=== PATIENT | female | born 1950 | race Caucasian/White ===

== ENCOUNTER 2019-10-12 14:39 | Emergency (ER) | payer MEDICARE, SELFPAY ==
[2019-10-12] VITALS (39 sets, daily range): BP systolic 102–158; BP diastolic 53–79; PULSE 79–120; RESP 9–22; TEMP 36.1–36.3; O2SAT 98–100
[2019-10-12 15:05] LABS: Add Manual Diff / Slide Review NO; Basophils Absolute Auto 100 /uL (0-100); Basophils Percent Auto 0.5 % (0-2); Eosinophils Absolute Auto 100 /uL (0-450); Eosinophils Percent Auto 0.2 % (2-4); Lymphocytes Absolute Auto 3600 /uL (1100-4500); Lymphocytes Percent Auto 15.4 % (25-40); Mean Corpuscular HGB Conc 30.4 % (30-36); Mean Corpuscular Hemoglobin 24.3 PG (26-34); Monocytes Absolute Auto 1400 /uL (0-900); Neutrophils Absolute Auto 18000 /uL (1500-7000); Neutrophils Percent Auto 77.9 % (50-75); Platelet Count 554 X10^3/uL (150-400); Red Blood Cell Count 1.64 X10^6/uL (4.0-5.2); Red Cell Distribution Width 16.9 % (11.6-14.8); White Blood Cell Count 23.2 X10^3/uL (4.5-11.0)
[2019-10-12 15:06] LABS: INR 1.1 (0.9-1.3); Prothrombin Time 12.9 SECONDS (10.1-12.7)
[2019-10-12] MEDS: ONDANSETRON 4 MG/2 ML INJ IV ×2 (15:08→21:55)
[2019-10-12 15:09] LABS: PTT Partial Thromboplastin Tim 24 SECONDS (26.4-36.2)
[2019-10-12] MEDS: MORPHINE 2 MG/ML INJ IV ×2 (15:09→15:33)
[2019-10-12] MEDS: SODIUM CHLORIDE 0.9% 1,000 ML 1000 ML IV (15:09)
[2019-10-12 15:10] LABS: Hematocrit 13.1 % (36-46)
[2019-10-12 15:11] LABS: Alanine Aminotransferase 26 IU/L (<35); Albumin 3.4 g/dL (3.5-5.0); Albumin Globulin Ratio 1.2 (1.0-2.8); Alkaline Phosphatase 94 U/L (38-126); Aspartate Aminotransferase 41 IU/L (14-36); BUN Creatinine Ratio 13.4 (6-22); Bilirubin Total 0.2 mg/dL (0.2-1.3); Blood Urea Nitrogen 40 mg/dL (7-17); Calcium 10.4 mg/dL (8.4-10.2); Carbon Dioxide 13 mmol/L (22-32); Chloride 103 mmol/L (98-107); Estimated Glomerular Filt Rate 15.6 mL/min (>60); Globulin 2.8 g/dL (1.7-4.1); Glucose 228 mg/dL (80-110); HEMOLYSIS < 15 (0-50); Potassium 4.8 mmol/L (3.4-5.1); Sodium 136 mmol/L (137-145); Total Protein 6.2 g/dL (6.3-8.2)
--- NOTE | 2019-10-12 15:14 | ED.WEAKNESS ---
HPI - Weakness General Chief complaint: Weakness Stated complaint: vaginal bleeding Time Seen by Provider: 10/12/19 14:48 Source: EMS Mode of arrival: EMS Limitations: no limitations History of Present Illness HPI Narrative: Patient is a kali 68-year-old female who has never been evaluated by a doctor due to tenriism beliefs presents today with weakness lightheadedness vaginal bleeding. She states that about 3 years ago she started noticing a wound on her left breast it has progressively gotten larger. For the last year she started having vaginal bleeding monthly however it has progressively gotten heavier. This time bleeding started 3 days ago she has gone through more than 2 pads an hour for number of days. She says she is passing large vaginal clots. She appears of pale she is tachycardic and hypotensive for EMS.. She says that she occasionally takes Advil for her lower abdominal menstrual cramps that the only medication she takes. She has also lost over 100 lb in 3 years due to decreased appetite. MD Complaint: generalized weakness Related Data Home Medications Medication Instructions Recorded Confirmed No Known Home Medications 10/12/19 10/12/19 Allergies Allergy/AdvReac Type Severity Reaction Status Date / Time No Known Drug Allergies Allergy Verified 10/12/19 14:59 Review of Systems Review of Systems ROS Unobtainable: All systems reviewed & are unremarkable except as noted in HPI and below Constitutional Constitutional: Denies frequent falls, Denies increased appetite, Reports lethargy, Reports malaise, Reports poor appetite, Reports weakness and Reports weight loss ENT Ears, Nose, Mouth, and Throat: Denies change in voice, Denies neck pain and Denies sore throat Cardiovascular Cardiovascular: Denies chest pain, Denies irregular heart rhythm, Reports lightheadedness, Denies palpitations, Denies dyspnea, Reports dyspnea on exertion and Denies orthopnea Respiratory Respiratory: Denies cough, Denies dyspnea, Reports dyspnea on exertion and Denies wheezing Gastrointestinal Gastrointestinal: Reports abdominal pain, Denies change in bowel habits, Denies diarrhea, Denies nausea and Denies vomiting Musculoskeletal Musculoskeletal: Denies back pain, Denies myalgias and Denies neck pain Integumentary/Breasts Skin/Breast: Reports as per HPI, Denies pruritus, Denies erythema, Denies rash and Reports wounds Neurologic Neurologic: Denies confusion, Denies frequent falls, Denies memory loss and Reports weakness Psychiatric Psychiatric: Denies confusion and Denies memory loss Endocrine Endocrine: Denies palpitations Allergic/Immunologic Allergic/Immunologic: Denies wheezing Patient History Medical History Patient denies medical problems (Acute) Social History Smoking Status: Never smoker Smoking Status: Never smoker alcohol intake frequency: 0-2 drinks per day Substance Use Type: does not use Exam Initial Vital Signs Initial Vital Signs: Vital Signs Pulse Rate 120 H 10/12/19 14:40 Respiratory Rate 10/12/19 14:40 Blood Pressure 120/79 10/12/19 14:40 Pulse Oximetry 100 10/12/19 14:40 GENERAL: Pale alert female and in [no acute] distress. HEENT: Head atraumatic,EOMI, pupils reactive, face symmetric, [moist] mucous membranes CARDIOVASCULAR: Tachycardic regular RESPIRATORY: Breath sounds equal bilaterally, no wheezes rales or rhonchi. BREAST: Left breast all open wound foul smell ABDOMEN: Soft, nontender. Normoactive bowel sounds all 4 quadrants. No guarding or rebound. EXTREMITIES: Normal range of motion, no clubbing or edema. Neurovascularly intact NEUROLOGICAL: Alert and oriented x4.Normal gait and speech. Cranial nerves II through XII grossly intact. SKIN: Warm, dry, no laceration, no petechiae, no rashes or lesions. Course Orders Ordered: ED Orders 10/12/19 14:26 Complete Blood Count AUTO DIFF Stat Comprehensive Metabolic Panel Stat Lactate (Lactic Acid) Stat Partial Thromboplastin Time Stat Prothrombin Time INR Stat 10/12/19 14:57 EKG-12 Lead Stat 10/12/19 15:15 Packed Cells Stat Procalcitonin Stat Type and Screen Stat 10/12/19 15:48 US pelvic complete Stat 10/12/19 16:08 CT chest abd pel wo con Stat 10/12/19 18:30 Blood Culture Stat 10/12/19 18:40 Basic Metabolic Panel Stat CBC Auto Diff [Complete Blood Count AUTO DIFF] Stat 10/12/19 20:01 Wound Culture and Gram Stain Stat Discontinued Medications Sodium Chloride (Normal Saline 0.9%) 1,000 mls @ 1,000 mls/hr IV BOLUS ONE Stop: 10/12/19 15:49 Last Infusion: 10/12/19 15:18 Dose: 125 mls/hr Documented by: Admin: 10/12/19 15:09 Dose: 1,000 mls/hr Documented by: LYNN Ceftriaxone Sodium/Dextrose (Rocephin) 1 gm in 50 mls @ 100 mls/hr IV NOW ONE Stop: 10/12/19 19:59 Last Admin: 10/12/19 19:57 Dose: 100 mls/hr Documented by: LYNN Metoclopramide HCl (Reglan) 10 mg IV NOW ONE Stop: 10/12/19 17:55 Last Admin: 10/12/19 17:58 Dose: 10 mg Documented by: LYNN Morphine Sulfate (Morphine) 2 mg IV NOW ONE Stop: 10/12/19 15:06 Last Admin: 10/12/19 15:09 Dose: 2 mg Documented by: LYNN Morphine Sulfate (Morphine) 2 mg IV NOW ONE Stop: 10/12/19 15:30 Last Admin: 10/12/19 15:33 Dose: 2 mg Documented by: NIC Morphine Sulfate (Morphine) 4 mg IV NOW ONE Stop: 10/12/19 15:48 Last Admin: 10/12/19 15:57 Dose: 4 mg Documented by: LYNN Ondansetron HCl (Zofran) 4 mg IV NOW ONE Stop: 10/12/19 15:06 Last Admin: 10/12/19 15:08 Dose: 4 mg Documented by: LYNN Vital Signs Vital signs: Vital Signs - 8 hr 10/12/19 14:40 10/12/19 14:53 10/12/19 15:00 Temperature Pulse Rate 120 H 110 H 115 H Respiratory Rate 20 13 15 Blood Pressure 120/79 Pulse Oximetry 100 100 10/12/19 15:15 10/12/19 15:30 10/12/19 15:45 Temperature Pulse Rate 104 H 101 H 100 H Respiratory Rate 14 14 15 Blood Pressure 110/53 L 113/57 L 114/59 L Pulse Oximetry 98 98 10/12/19 16:00 10/12/19 16:05 10/12/19 16:09 Temperature 97.1 F L Pulse Rate 99 H 106 H 102 H Respiratory Rate 10 L 22 Blood Pressure 102/57 L 102/57 L 124/58 L Pulse Oximetry 10/12/19 16:15 10/12/19 16:22 10/12/19 16:38 Temperature 97.0 F L Pulse Rate 98 H 102 H 84 Respiratory Rate 11 L 20 Blood Pressure 103/58 L 103/60 Pulse Oximetry 100 10/12/19 16:39 10/12/19 16:45 10/12/19 17:00 Temperature Pulse Rate 99 H 92 H 87 Respiratory Rate 9 L 12 12 Blood Pressure 111/68 109/55 L 111/58 L Pulse Oximetry 100 100 100 10/12/19 17:15 10/12/19 17:29 10/12/19 17:30 Temperature 97.3 F L Pulse Rate 87 90 90 Respiratory Rate 13 12 14 Blood Pressure 119/66 119/66 117/61 Pulse Oximetry 100 100 10/12/19 17:45 10/12/19 18:00 10/12/19 18:15 Temperature 97.4 F L Pulse Rate 92 H 87 83 Respiratory Rate 18 15 12 Blood Pressure 128/60 143/73 H 142/66 H Pulse Oximetry 100 100 100 10/12/19 18:30 10/12/19 18:45 10/12/19 19:00 Temperature Pulse Rate 83 86 84 Respiratory Rate 11 L 12 11 L Blood Pressure 130/68 141/71 H 137/67 Pulse Oximetry 100 100 100 10/12/19 19:15 10/12/19 19:30 10/12/19 19:45 Temperature Pulse Rate 86 79 92 H Respiratory Rate 11 L 16 12 Blood Pressure 133/66 145/70 H 131/63 Pulse Oximetry 100 100 100 10/12/19 20:00 10/12/19 20:10 10/12/19 20:12 Temperature 97.1 F L 97.0 F L Pulse Rate 92 H 93 H 91 H Respiratory Rate 16 14 14 Blood Pressure 158/72 H 158/72 H 158/72 H Pulse Oximetry 100 10/12/19 20:15 Temperature Pulse Rate 93 H Respiratory Rate 14 Blood Pressure 133/61 Pulse Oximetry MDM - Weakness Lab Data Attestation: I reviewed the patient's lab results. Result diagrams: 10/12/19 18:40 10/12/19 18:40 Labs: Lab Results 10/12/19 10/12/19 10/12/19 Range/Units 14:26 14:26 14:26 WBC 23.2 H (4.5-11.0) X10^3/uL RBC 1.64 L (4.0-5.2) X10^6/uL Hgb 4.0 L* (12.0-16.0) g/dL Hct 13.1 L* (36-46) % MCV 80.0 (80-100) fL MCH 24.3 L (26-34) PG MCHC 30.4 (30-36) % RDW 16.9 H (11.6-14.8) % Plt Count 554 H (150-400) X10^3/uL Neut % (Auto) 77.9 H (50-75) % Lymph % (Auto) 15.4 L (25-40) % [place] % (Auto) 6.0 (3-14) % Eos % (Auto) 0.2 L (2-4) % Baso % (Auto) 0.5 (0-2) % Neut # (Auto) 69466 H (4091-2316) /uL Lymph # (Auto) 3600 (6212-5976) /uL [place] # (Auto) 1400 H (0-900) /uL Eos # (Auto) 100 (0-450) /uL Baso # (Auto) 100 (0-100) /uL PT 12.9 H (10.1-12.7) SECONDS INR 1.1 (0.9-1.3) APTT 24 L (26.4-36.2) SECONDS Sodium 136 L (137-145) mmol/L Potassium 4.8 (3.4-5.1) mmol/L Chloride 103 (98-107) mmol/L Carbon Dioxide 13 L (22-32) mmol/L BUN 40 H (7-17) mg/dL Creatinine 2.98 H (0.52-1.04) mg/dL Estimated GFR 15.6 L (>60) mL/min BUN/Creatinine Ratio 13.4 (6-22) Glucose 228 H (80-110) mg/dL Lactate (0.7-2.1) mmol/L Calcium 10.4 H (8.4-10.2) mg/dL Total Bilirubin 0.2 (0.2-1.3) mg/dL AST 41 H (14-36) IU/L ALT 26 (<35) IU/L Alkaline Phosphatase 94 (38-126) U/L Total Protein 6.2 L (6.3-8.2) g/dL Albumin 3.4 L (3.5-5.0) g/dL Globulin 2.8 (1.7-4.1) g/dL Albumin/Globulin Ratio 1.2 (1.0-2.8) Procalcitonin (<0.5) ng/mL COVID-19 PCR (Negative) Blood Type Antibody Screen Crossmatch 10/12/19 10/12/19 10/12/19 Range/Units 14:26 15:15 15:15 WBC (4.5-11.0) X10^3/uL RBC (4.0-5.2) X10^6/uL Hgb (12.0-16.0) g/dL Hct (36-46) % MCV (80-100) fL MCH (26-34) PG MCHC (30-36) % RDW (11.6-14.8) % Plt Count (150-400) X10^3/uL Neut % (Auto) (50-75) % Lymph % (Auto) (25-40) % [place] % (Auto) (3-14) % Eos % (Auto) (2-4) % Baso % (Auto) (0-2) % Neut # (Auto) (3459-0307) /uL Lymph # (Auto) (6698-6230) /uL [place] # (Auto) (0-900) /uL Eos # (Auto) (0-450) /uL Baso # (Auto) (0-100) /uL PT (10.1-12.7) SECONDS INR (0.9-1.3) APTT (26.4-36.2) SECONDS Sodium (137-145) mmol/L Potassium (3.4-5.1) mmol/L Chloride (98-107) mmol/L Carbon Dioxide (22-32) mmol/L BUN (7-17) mg/dL Creatinine (0.52-1.04) mg/dL Estimated GFR (>60) mL/min BUN/Creatinine Ratio (6-22) Glucose (80-110) mg/dL Lactate 10.4 H* (0.7-2.1) mmol/L Calcium (8.4-10.2) mg/dL Total Bilirubin (0.2-1.3) mg/dL AST (14-36) IU/L ALT (<35) IU/L Alkaline Phosphatase (38-126) U/L Total Protein (6.3-8.2) g/dL Albumin (3.5-5.0) g/dL Globulin (1.7-4.1) g/dL Albumin/Globulin Ratio (1.0-2.8) Procalcitonin 0.45 (<0.5) ng/mL COVID-19 PCR (Negative) Blood Type A Positive Antibody Screen Negative Crossmatch See Detail 10/12/19 10/12/19 10/12/19 Range/Units 18:38 18:40 18:40 WBC 21.5 H (4.5-11.0) X10^3/uL RBC 2.59 L (4.0-5.2) X10^6/uL Hgb 7.0 L (12.0-16.0) g/dL Hct 21.3 L (36-46) % MCV 82.1 (80-100) fL MCH 26.9 (26-34) PG MCHC 32.8 (30-36) % RDW 17.1 H (11.6-14.8) % Plt Count 340 (150-400) X10^3/uL Neut % (Auto) 87.4 H (50-75) % Lymph % (Auto) 8.2 L (25-40) % [place] % (Auto) 4.1 (3-14) % Eos % (Auto) 0.0 L (2-4) % Baso % (Auto) 0.3 (0-2) % Neut # (Auto) 83368 H (9803-9566) /uL Lymph # (Auto) 1800 (3257-1013) /uL [place] # (Auto) 900 (0-900) /uL Eos # (Auto) 0 (0-450) /uL Baso # (Auto) 100 (0-100) /uL PT (10.1-12.7) SECONDS INR (0.9-1.3) APTT (26.4-36.2) SECONDS Sodium (137-145) mmol/L Potassium (3.4-5.1) mmol/L Chloride (98-107) mmol/L Carbon Dioxide (22-32) mmol/L BUN (7-17) mg/dL Creatinine (0.52-1.04) mg/dL Estimated GFR (>60) mL/min BUN/Creatinine Ratio (6-22) Glucose (80-110) mg/dL Lactate 2.6 H (0.7-2.1) mmol/L Calcium (8.4-10.2) mg/dL Total Bilirubin (0.2-1.3) mg/dL AST (14-36) IU/L ALT (<35) IU/L Alkaline Phosphatase (38-126) U/L Total Protein (6.3-8.2) g/dL Albumin (3.5-5.0) g/dL Globulin (1.7-4.1) g/dL Albumin/Globulin Ratio (1.0-2.8) Procalcitonin (<0.5) ng/mL COVID-19 PCR Negative (Negative) Blood Type Antibody Screen Crossmatch 10/12/19 Range/Units 18:40 WBC (4.5-11.0) X10^3/uL RBC (4.0-5.2) X10^6/uL Hgb (12.0-16.0) g/dL Hct (36-46) % MCV (80-100) fL MCH (26-34) PG MCHC (30-36) % RDW (11.6-14.8) % Plt Count (150-400) X10^3/uL Neut % (Auto) (50-75) % Lymph % (Auto) (25-40) % [place] % (Auto) (3-14) % Eos % (Auto) (2-4) % Baso % (Auto) (0-2) % Neut # (Auto) (9638-6039) /uL Lymph # (Auto) (3535-3246) /uL [place] # (Auto) (0-900) /uL Eos # (Auto) (0-450) /uL Baso # (Auto) (0-100) /uL PT (10.1-12.7) SECONDS INR (0.9-1.3) APTT (26.4-36.2) SECONDS Sodium 137 (137-145) mmol/L Potassium 5.1 (3.4-5.1) mmol/L Chloride 107 (98-107) mmol/L Carbon Dioxide 19 L (22-32) mmol/L BUN 42 H (7-17) mg/dL Creatinine 2.63 H (0.52-1.04) mg/dL Estimated GFR 18.0 L (>60) mL/min BUN/Creatinine Ratio 16.0 (6-22) Glucose 143 H (80-110) mg/dL Lactate (0.7-2.1) mmol/L Calcium 9.3 (8.4-10.2) mg/dL Total Bilirubin (0.2-1.3) mg/dL AST (14-36) IU/L ALT (<35) IU/L Alkaline Phosphatase (38-126) U/L Total Protein (6.3-8.2) g/dL Albumin (3.5-5.0) g/dL Globulin (1.7-4.1) g/dL Albumin/Globulin Ratio (1.0-2.8) Procalcitonin (<0.5) ng/mL COVID-19 PCR (Negative) Blood Type Antibody Screen Crossmatch Imaging Data US - MEDICAL REFERRAL COORDINATOR: Radiologist Impression: PROCEDURE: US PELVIC COMPLETE INDICATIONS: VAG BLEED TECHNIQUE: Real-time scanning was performed of the pelvic organs, with image documentation. Additional endovaginal scanning was necessary due to incomplete visualization of the adnexal and endometrial structures by transabdominal scanning. COMPARISON: [facility], CT, CT CHEST ABD PEL WO CON, 10/12/2019, 16:10. FINDINGS: Transabdominal scanning: Limited scanning through the kidneys shows no hydronephrosis. No pathologic free abdominal or pelvic fluid. Endovaginal scanning: Uterus: Uterus is enlarged for a postmenopausal uterus, measuring 10.9 x 6.2 x 8.4 cm. There is a large complex uterine mass , suspicious for uterine carcinoma. Ovaries: Not visualized, possibly secondary to overlying bowel gas or involutional change IMPRESSION: Large uterine mass, suspicious for endometrial carcinoma. Comment: Preliminary findings were reported by the retail department supervisor to the referring provider at the time of study completion. Dictated by: Sinan Hernández M.D. on 10/12/2019 at 16:35 CT scan - abdomen/pelvis: Radiologist Impression: PROCEDURE: CT CHEST ABD PEL WO CON INDICATIONS: cancer TECHNIQUE: After the administration of oral contrast, 5 mm thick sections acquired from the lung apices to the symphysis pubis. 5 mm thick coronal and sagittal reformats acquired, with additional 7 mm coronal MIP reformats through the lungs. For radiation dose reduction, the following was used: automated exposure control, adjustment of mA and/or kV according to patient size. COMPARISON: [facility], , PELVIC COMPLETE, 10/12/2019, 16:10. FINDINGS: Image quality: Diagnostic, with streak artifact through the upper abdomen. CHEST: Lungs and pleura: Soft tissue pulmonary nodules are seen within the lower lobes, measuring up to 6 mm on each side. No pleural effusions or pneumothorax. Central and peripheral airways are patent are normal in caliber. Mediastinum: Heart size is normal. No pericardial effusion. No frankly enlarged mediastinal lymph nodes can be seen on this noncontrast CT. Thoracic aorta and central pulmonary arteries are normal in size. Esophagus is normal in caliber. No hiatal hernia. Chest wall: There is a left lateral breast mass seen that measures 7.3 x 4.7 cm in greatest axial dimension. Metastatic lymph nodes are seen to the left axilla, with the largest measuring 5.2 x 5.7 cm. No definitely enlarged supraclavicular lymph nodes are detected. No significant thyroid abnormality is seen. ABDOMEN: Solid organs: Liver is normal in size. Gallbladder wall is not thickened. Pancreas is normal in contours. Spleen is normal in size. No adrenal nodules. Both kidneys are normal in size, without hydronephrosis or nephrolithiasis. Peritoneum and bowel: Small and large bowel loops are normal in caliber and wall thickness. No free fluid or air. Nodes and vessels: No retroperitoneal or mesenteric adenopathy by size criteria. Aorta and inferior vena cava are normal in size. Miscellaneous: No ventral hernias. PELVIS: Genitourinary: Bladder wall thickness is normal. This there is an enlarged, heterogeneous uterus seen, with a particularly enlarged cervix that measures 5.6 cm. Miscellaneous: No inguinal hernias or adenopathy. Bones: Abnormal any lesions are seen, with areas of sclerosis and lysis. Pathologic appearing fractures can be seen at T8 and L3, with also minimal loss of height seen at T10 and at L1, which may also represent pathologic fractures. Degenerative changes are seen throughout, which are most prominent involving the lower lumbar spine. S-shaped scoliotic curvature is seen. IMPRESSION: 7.3 cm left breast mass, with associated enlarged metastatic left axillary lymph nodes. Lower lobe pulmonary nodules are seen, which are also suspicious for metastatic disease. Bony metastatic disease, with pathologic fractures at least at T8 and L3. Enlarged, heterogeneous uterus is seen, with a particularly enlarged cervix. Differential diagnosis includes additional neoplasm and potentially a fibroid. Please correlate with physical examination findings. If clinically appropriate, a dedicated gynecological protocol MRI (without and with contrast) could be considered for further evaluation (assuming that there is no contraindication). Incidental note is made of: S-shaped scoliotic curvature Dictated by: Alfa Child M.D. on 10/12/2019 at 15:46 Approved by: Alfa Child M.D. on 10/12/2019 at 15:53 ECG Data Attestation: I personally reviewed and interpreted this ECG as follows: Prior ECG tracings: not available for review Interpretation: Sinus tachycardia rate 110 p.r. interval 160 QRS [address] changes MDM Narrative Medical decision making narrative: Conversation with patient and no rather blood and poor prognosis. She is found to be quite anemic with a hemoglobin of 4 and severely elevated lactate of 10.4. Both patient and has been would prefer not to take an aggressive route would rather not have surgery or chemotherapy. However she is agreeable to a blood transfusion and they would like the vaginal bleeding to be stopped. I have discussed case with Dr. autumn GOMEZ who at this time recommends radiation in recommends that patient be transferred to facility where radiation and possibly billing assistant Oncology is available. Patient is on board with palliative like treatment. Patient does have leukocytosis of 23 significantly elevated lactate and mildly elevated procalcitonin. However she is afebrile, infection may be from the breast mass or numbers may be purely stress related. Although there isn't significant erythema there is a foul smell. She is given 1 dose of Rocephin prophylactically. Patient and both aware of grave prognosis. Dr. Costa-hospitalist at [facility] updated patient's symptoms test results requested the talked oncology an OBGYN at her hospital before being transferred Dr. Agrawal oncology at [facility] date on symptoms test results patient wishes agrees with radiation and radiation prior to discharge, happy to consult and was a pleasure to talk to SWITCHING CLERK-at [facility] also updated on patient's symptoms and test results he is also happy and willing to consult but at this time no need for any intervention Patient transferred to [facility] Critical Care Time Critical Care Time Critical Care Time: Yes Total Critical Care Time: 45 Attestation: The high probability of a clinically significant, sudden or life threatening deterioration of the [cardiovascular] system(s) required my full and direct attention, intervention and personal management. The aggregate critical care time was [45] minutes. This time is in addition to time spent performing reported procedures but includes the following: [x] Data Review and interpretation [x] Patient assessment and monitoring of vital signs [x] Documentation [x] Medication orders and management Discharge Plan Departure Patient Disposition: [facility] Clinical Impression: Anemia, Breast cancer Prescriptions: No Action No Known Home Medications RF: 0
[2019-10-12 15:24] LABS: Lactate (Lactic Acid) 10.4 mmol/L (0.7-2.1)
--- NOTE | 2019-10-12 15:48 | DI.US.S_ITS ---
PROCEDURE: US PELVIC COMPLETE INDICATIONS: VAG BLEED TECHNIQUE: Real-time scanning was performed of the pelvic organs, with image documentation. Additional endovaginal scanning was necessary due to incomplete visualization of the adnexal and endometrial structures by transabdominal scanning. COMPARISON: [facility], CT, CT CHEST ABD PEL WO CON, 10/12/2019, 16:10. FINDINGS: Transabdominal scanning: Limited scanning through the kidneys shows no hydronephrosis. No pathologic free abdominal or pelvic fluid. Endovaginal scanning: Uterus: Uterus is enlarged for a postmenopausal uterus, measuring 10.9 x 6.2 x 8.4 cm. There is a large complex uterine mass , suspicious for uterine carcinoma. Ovaries: Not visualized, possibly secondary to overlying bowel gas or involutional change IMPRESSION: Large uterine mass, suspicious for endometrial carcinoma. Comment: Preliminary findings were reported by the corporate aircraft mechanic to the referring provider at the time of study completion. Dictated by: Sinan Hernández M.D. on 10/12/2019 at 16:35 Approved by: Sinan Hernández M.D. on 10/12/2019 at 16:47
[2019-10-12] MEDS: MORPHINE 4 MG/ML INJ IV (15:57)
--- NOTE | 2019-10-12 16:08 | DI.CT.S_ITS ---
PROCEDURE: CT CHEST ABD PEL WO CON INDICATIONS: cancer TECHNIQUE: After the administration of oral contrast, 5 mm thick sections acquired from the lung apices to the symphysis pubis. 5 mm thick coronal and sagittal reformats acquired, with additional 7 mm coronal MIP reformats through the lungs. For radiation dose reduction, the following was used: automated exposure control, adjustment of mA and/or kV according to patient size. COMPARISON: [facility], , PELVIC COMPLETE, 10/12/2019, 16:10. FINDINGS: Image quality: Diagnostic, with streak artifact through the upper abdomen. CHEST: Lungs and pleura: Soft tissue pulmonary nodules are seen within the lower lobes, measuring up to 6 mm on each side. No pleural effusions or pneumothorax. Central and peripheral airways are patent are normal in caliber. Mediastinum: Heart size is normal. No pericardial effusion. No frankly enlarged mediastinal lymph nodes can be seen on this noncontrast CT. Thoracic aorta and central pulmonary arteries are normal in size. Esophagus is normal in caliber. No hiatal hernia. Chest wall: There is a left lateral breast mass seen that measures 7.3 x 4.7 cm in greatest axial dimension. Metastatic lymph nodes are seen to the left axilla, with the largest measuring 5.2 x 5.7 cm. No definitely enlarged supraclavicular lymph nodes are detected. No significant thyroid abnormality is seen. ABDOMEN: Solid organs: Liver is normal in size. Gallbladder wall is not thickened. Pancreas is normal in contours. Spleen is normal in size. No adrenal nodules. Both kidneys are normal in size, without hydronephrosis or nephrolithiasis. Peritoneum and bowel: Small and large bowel loops are normal in caliber and wall thickness. No free fluid or air. Nodes and vessels: No retroperitoneal or mesenteric adenopathy by size criteria. Aorta and inferior vena cava are normal in size. Miscellaneous: No ventral hernias. PELVIS: Genitourinary: Bladder wall thickness is normal. This there is an enlarged, heterogeneous uterus seen, with a particularly enlarged cervix that measures 5.6 cm. Miscellaneous: No inguinal hernias or adenopathy. Bones: Abnormal any lesions are seen, with areas of sclerosis and lysis. Pathologic appearing fractures can be seen at T8 and L3, with also minimal loss of height seen at T10 and at L1, which may also represent pathologic fractures. Degenerative changes are seen throughout, which are most prominent involving the lower lumbar spine. S-shaped scoliotic curvature is seen. IMPRESSION: 7.3 cm left breast mass, with associated enlarged metastatic left axillary lymph nodes. Lower lobe pulmonary nodules are seen, which are also suspicious for metastatic disease. Bony metastatic disease, with pathologic fractures at least at T8 and L3. Enlarged, heterogeneous uterus is seen, with a particularly enlarged cervix. Differential diagnosis includes additional neoplasm and potentially a fibroid. Please correlate with physical examination findings. If clinically appropriate, a dedicated gynecological protocol MRI (without and with contrast) could be considered for further evaluation (assuming that there is no contraindication). Incidental note is made of: S-shaped scoliotic curvature Dictated by: Alfa Child M.D. on 10/12/2019 at 15:46 Approved by: Alfa Child M.D. on 10/12/2019 at 15:53
[2019-10-12 16:56] LABS: Reflexed Lactate in 2 Hours Y
[2019-10-12] MEDS: HYDROMORPHONE 0.5 MG INJ (17:26)
[2019-10-12] MEDS: ONDANSETRON 4 MG/2 ML INJ (17:27)
[2019-10-12] MEDS: METOCLOPRAMIDE 10 MG/2 ML INJ IV (17:58)
[2019-10-12 18:19] LABS: Procalcitonin 0.45 ng/mL (<0.5)
[2019-10-12 19:50] LABS: COVID19 -Nasal RAPID Negative (Negative)
[2019-10-12 19:53] LABS: Add Manual Diff / Slide Review NO; Basophils Absolute Auto 100 /uL (0-100); Basophils Percent Auto 0.3 % (0-2); Eosinophils Absolute Auto 0 /uL (0-450); Hematocrit 21.3 % (36-46); Lymphocytes Absolute Auto 1800 /uL (1100-4500); Lymphocytes Percent Auto 8.2 % (25-40); Mean Corpuscular HGB Conc 32.8 % (30-36); Mean Corpuscular Hemoglobin 26.9 PG (26-34); Mean Corpuscular Volume 82.1 fL (80-100); Monocytes Absolute Auto 900 /uL (0-900); Monocytes Percent Auto 4.1 % (3-14); Neutrophils Absolute Auto 18800 /uL (1500-7000); Neutrophils Percent Auto 87.4 % (50-75); Platelet Count 340 X10^3/uL (150-400); Red Blood Cell Count 2.59 X10^6/uL (4.0-5.2); Red Cell Distribution Width 17.1 % (11.6-14.8); White Blood Cell Count 21.5 X10^3/uL (4.5-11.0)
[2019-10-12] MEDS: CEFTRIAXONE 1 GM/50 ML FROZ.PIGGY IV (19:57)
[2019-10-12 20:02] LABS: Blood Urea Nitrogen 42 mg/dL (7-17); Calcium 9.3 mg/dL (8.4-10.2); Carbon Dioxide 19 mmol/L (22-32); Chloride 107 mmol/L (98-107); Glucose 143 mg/dL (80-110); HEMOLYSIS 19 (0-50); Potassium 5.1 mmol/L (3.4-5.1); Sodium 137 mmol/L (137-145)
[2019-10-12 20:03] LABS: Lactate 2HR (Lactic Acid Rflx) 2.6 mmol/L (0.7-2.1)
[2019-10-12] MEDS: HYDROMORPHONE 0.5 MG INJ IV (21:55)
== END 2019-10-12 22:19 | disposition short-term general hospital (02) ==
PROVIDERS: Emergency Provider Emergency Medicine
DX: C50.912 Malignant neoplasm of unspecified site of left female breast (principal); D64.9 Anemia, unspecified; E87.71 Transfusion associated circulatory overload; N93.9 Abnormal uterine and vaginal bleeding, unspecified; R79.89 Other specified abnormal findings of blood chemistry; R53.1 Weakness; R00.0 Tachycardia, unspecified; I95.9 Hypotension, unspecified; R10.30 Lower abdominal pain, unspecified; R06.00 Dyspnea, unspecified
CPT/HCPCS: 36415; 36430; 71250; 74176; 76830; 76856; 80048; 80053; 83605; 84145; 85025; 85610; 85730; 86850; 86900; 86901; 87040; 87070; 87075; 87077; 87205; 87635; 93005; 93010; 96361; 96365; 96375; 96376; 99285; 99291; P9016; J1170; J2270; J2405; J2765